=== PATIENT | female | born 1965 | race Two or more races ===

== ENCOUNTER 2020-08-02 06:58 | Day surgery (SDC) | payer BC ==
[~2020-08-02 06:58] MED LIST: CRESTOR10 MG PO; DIOVAN160 M1 PO; SYNTHROID88 MCG PO
== END 2020-08-02 11:55 | disposition home or self-care (01) ==
LOC: AMB-ENDOS 06:58
PROVIDERS: ATTEND Colon & Rectal Surgery
DX: K62.89 Other specified diseases of anus and rectum (principal); K64.8 Other hemorrhoids; Z20.822 Contact with and (suspected) exposure to COVID-19; Z12.11 Encounter for screening for malignant neoplasm of colon

== ENCOUNTER 2025-02-28 20:10 | Emergency (ER) | payer BC ==
[~2025-02-28] VITALS: Ht 172.7 cm; Wt 88.5 kg
[2025-02-28] MEDS ORDERED: KETOROLAC TROMETHAMINE 60 MG VIAL IM ONE (22:15)
[2025-02-28] MEDS ORDERED: DEXAMETHASONE SODIUM PHOSPHATE 4 MG/ML VIAL IM ONE (22:15)
[2025-02-28] MEDS ORDERED: NAPROXEN500 MG PO (23:43)
[2025-02-28] MEDS ORDERED: MEDROLPACK PO (23:43)
[2025-02-28] MEDS ORDERED: NEURONTIN300 MG PO (23:43)
== END 2025-03-01 07:13 | disposition home or self-care (01) ==
LOC: ER 20:11
DX: S63.592A Other specified sprain of left wrist, initial encounter (principal); X58.XXXA Exposure to other specified factors, initial encounter; Y93.89 Activity, other specified; Y92.89 Other specified places as the place of occurrence of the external cause; Y99.9 Unspecified external cause status